=== PATIENT | male | born 1950 | race Caucasian/White ===

== ENCOUNTER 2017-07-19 12:29 | Emergency (ER) | payer MEDICARE, MEDICAID ==
[~2017-07-19] VITALS: Ht 157.5 cm; Wt 61.0 kg
[2017-07-19] MEDS ORDERED: NO HOME MEDICATIONS (12:41)
[2017-07-19] MEDS ORDERED: VISCOUS LIDOCAINE 2% 15 ML UDC MM STA (13:02)
[2017-07-19 14:05] VITALS: BP 130/87
== END 2017-07-19 14:06 | disposition home or self-care (01) ==
LOC: ER 12:29
DX: R07.0 Pain in throat (principal); R13.10 Dysphagia, unspecified
CPT/HCPCS: 87070; 87430; 99284